=== PATIENT | male | born 1950 | race Caucasian/White ===

== ENCOUNTER → 2016-12-28 | Outpatient (CLI) | payer OTHER | LOC: BHFA 13:30 | PROVIDERS: ATTEND Internal Medicine Cardiovascular Disease | DX: Z01.810 Encounter for preprocedural cardiovascular examination (principal) ==

== ENCOUNTER → 2017-01-03 | Outpatient (CLI) | payer OTHER | LOC: BHLMT 08:30 | PROVIDERS: ATTEND Internal Medicine Cardiovascular Disease | DX: Z01.810 Encounter for preprocedural cardiovascular examination (principal); I25.10 Atherosclerotic heart disease of native coronary artery without angina pectoris | CPT/HCPCS: 78452; 93017; A9500; J2785 ==

== ENCOUNTER 2017-01-22 05:45 | Inpatient (IN) | payer OTHER ==
[2017-01-18 12:17] LABS: % IMMATURE GRANULYOCYTES 0.6 % (0.0-1.1); ABSOLUTE IMMATURE GRANULOCYTES 0.04 10^3/uL (0.00-0.10); ADD DIFF? NO; ADD MORPH? NO; ADD SCAN? NO; ATYPICAL LYMPHOCYTE FLAG 0 (0-99); FRAGMENT RBC FLAG 0 (0-99); HEMATOCRIT 46.3 % (40.0-51.0); HEMOGLOBIN 16.1 g/dL (13.7-17.5); LEFT SHIFT FLG 0 (0-99); LIPEMIA HEMOLYSIS FLAG 90 (0-99); MEAN CELL HEMOGLOBIN 31.8 pg (27.9-34.1); MEAN CELL HEMOGLOBIN CONCENTR. 34.8 g/dL (32.4-36.7); MEAN CELL VOLUME 91.3 fL (81.5-99.8); PLATELET CLUMPS FLAG 0 (0-99); PLATELET COUNT 179 10^3/uL (150-400); RED BLOOD CELL COUNT 5.07 10^6/uL (4.40-6.38); RED CELL DISTRIBUTION WIDTH 14.8 % (11.5-15.2)
[2017-01-18 12:51] LABS: ANION GAP 16 mEq/L (8-16); CALCIUM 10.1 mg/dL (8.5-10.4); CARBON DIOXIDE 20 mEq/l (22-31); CHLORIDE 108 mEq/L (97-110); CREATININE 0.8 mg/dL (0.7-1.3); GLOMERULAR FILTRATION RATE > 60; GLUCOSE 226 mg/dL (70-100); POTASSIUM 3.8 mEq/L (3.5-5.2); SODIUM 144 mEq/L (134-144)
[2017-01-22] MEDS ORDERED: ceFAZolin 2 GM/DEXTROSE 100 ML IV ONE (05:52)
[2017-01-22] MEDS ORDERED: LIDOCAINE 1% 2 ML INJ ID PRN (05:55)
[2017-01-22] MEDS ORDERED: LR 1,000 ML IV ONE (05:55)
[2017-01-22] MEDS ORDERED: THROMBIN (BOVINE) 5,000 UNIT VIAL TP ONE (06:44)
[2017-01-22] MEDS ORDERED: BUPIVACAINE/EPI 0.25% 30 ML SDV ONE (06:45)
[2017-01-22] MEDS ORDERED: BUPIVACAINE 0.25% 30 ML SDV ONE (06:45)
[2017-01-22] MEDS ORDERED: BACITRACIN 50,000 UNITS/10 ML SYR IRR ONE (06:46)
--- NOTE | 2017-01-22 07:01 | PDGENHP ---
History & Physical Chief Complaint: Left scapular pain. Bilateral arm weakness History of Present Illness: 66 yo male with left scapular pain and bilateral upper extremity weakness associated with numbness in bilateral fingers and difficulty with fine motor tasks. He is also having difficulty with balance and gait. 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 Pertinent Past, Social, Family History: Relevant Physical Exam: A+0x4. right Dorsiflexor 3+/5. DTR 1+/4 throughout. sens + Lt, subjective decreased in sensation in bilateral fingers Cardiorespiratory Assessment: Heart: RRR. Lungs: CTA bilaterally
--- NOTE | 2017-01-22 07:01 | PDANEPAE ---
ANE History of Present Illness cervical radiculopathy ANE Past Medical History - Cardiovascular History Hx Hypertension: Yes Hx Arrhythmias: No Hx Chest Pain: No Hx Coronary Artery / Peripheral Vascular Disease: Yes Hx CHF / Valvular Disease: No Hx Palpitations: No Cardiovascular History Comment: s/p coronary stents in - Pulmonary History Hx COPD: Yes Hx Asthma/Reactive Airway Disease: No Hx Recent Upper Respiratory Infection: No Hx Oxygen in Use at Home: No Hx Sleep Apnea: Yes Sleep Apnea Screening Result - Last Documented: Positive Pulmonary History Comment: ANGIOPLASTY W/2 STENTS 2004. 1ppd x 50 years - Neurologic History Hx Cerebrovascular Accident: No Hx Seizures: No Hx Dementia: No Neurologic History Comment: peripheral neuropathy x 2 years, difficulty ambulating as a result, uses cane to ambulate - Endocrine History Hx Diabetes: Yes Hypothyroid: Yes Endocrine History Comment: PREDIAB. HYPOTHYROID - Renal History Hx Renal Disorders: Yes Renal History Comment: BLADDER - OXYBUTININ - Liver History Hx Hepatic Disorders: No Hepatic History Comment: hx of myopathy with elevated CK, due to symvastatin, now improved - Neurological & Psychiatric Hx Hx Neurological and Psychiatric Disorders: No - Cancer History Hx Cancer: No - Congenital Disorder History Hx Congenital Disorders: No - GI History GERD: mild Hx Gastrointestinal Disorders: Yes Gastrointestinal History Comment: ACID REFLUX. HEMICOLONECTOMY - Other Health History Other Health History: RESTLESS LEG SYNDROME. PSORIASIS - Chronic Pain History Chronic Pain: Yes (LOW BACK & NECK PAIN) - Surgical History Prior Surgeries: HEMICOLONECTOMY. CATARACTS. ANGIOPLASTY X 2 STENTS 2004 ANE Review of Systems - Exercise capacity Exercise capacity: >=4 METS METS (RN): 4 METS ANE Patient History - Allergies Allergies/Adverse Reactions: No Known Allergies Allergy (Unverified 12/05/16 18:22) - Home Medications Home Medications: Albuterol [Proventil Inhaler HFA (*)] 2 puffs IH Q4 PRN 01/18/17 [Last Taken ] Amlodipine Besylate [Norvasc] 5 mg PO HS 01/18/17 [Last Taken Unknown] Aspirin [Aspirin 81mg (*)] 81 mg PO DAILY 01/18/17 [Last Taken Unknown] Betamethasone/Propylene Glyc [Betamethasone Dp Aug 0.05% Crm] 1 larissa TP DAILY 01/28 [Last Taken Unknown] Cholecalciferol Vit D3 [Vitamin D3 (*)] 1,000 units PO DAILY 01/18/17 [Last Taken Unknown] Cyanocobalamin [Vitamin B12 1000MCG/ML (*)] 1,000 mcg IM Q30D 01/18/17 [Last Taken 01/15/17] Docusate Sodium [Colace 100 MG (*)] 100 mg PO DAILY PRN 01/18/17 [Last Taken ] Ketoconazole [Nizoral A-D] 125 ml TP DAILY 01/18/17 [Last Taken 01/21/17] Latanoprost 0.005% [Xalatan 0.005% (*)] 1 drops EACHEYE HS 01/18/17 [Last Taken 01/21/17 22:30] Levothyroxine [Synthroid 137 mcg (*)] 137 mcg PO DAILY06 01/18/17 [Last Taken Unknown] Meloxicam [Mobic 15 mg] 15 mg PO DAILY 01/18/17 [Last Taken 01/04/17] Methylphenidate HCl [Ritalin 20mg (*)] 20 mg PO BID@0800,1300 01/18/17 [Last Taken 01/21/17 13:00] Methylphenidate HCl [Ritalin 5mg (*)] 5 mg PO DAILY@1800 01/18/17 [Last Taken 18:00] Metoprolol Succinate [Toprol Xl 200 mg] 200 mg PO DAILY 01/18/17 [Last Taken Unknown] Multivitamins [Multivitamin (*)] 1 each PO DAILY 01/18/17 [Last Taken 12/25/16] Omeprazole [Prilosec 20 mg] 20 mg PO DAILY 01/18/17 [Last Taken 12/25/16] Oxybutynin Chloride [Ditropan Xl] 20 mg PO DAILY 01/18/17 [Last Taken 01/15/17] Quinapril HCl [Accupril 40 MG] 40 mg PO DAILY 01/18/17 [Last Taken 01/21/17] buPROPion XL [Wellbutrin Xl] 150 mg PO DAILY 01/18/17 [Last Taken 01/21/17 09:00 ] metFORMIN HCL [Metformin HCl] 500 mg PO DAILY@0800 01/18/17 [Last Taken 09:00] rOPINIRole HCL [Ropinirole HCl] 3 mg PO TID 01/18/17 [Last Taken Unknown] - NPO status NPO Since - Liquids (Date): 01/21/17 NPO Since - Liquids (Time): 22:00 NPO Since - Solids (Date): 01/21/17 NPO Since - Solids (Time): 22:00 - Smoking Hx Smoking Status: Light smoker - Family Anes Hx Family Hx Anesthesia Complications: NEG ANE Labs/Vital Signs - Labs Result Diagrams: 01/18/17 12:08 01/18/17 12:08 - Vital Signs Blood Pressure: 133/93 Heart Rate: 74 Respiratory Rate: 18 O2 Sat (%): 93 Height: 177.8 cm Weight: 108.862 kg ANE Physical Exam - Airway Neck exam: FROM Mallampati Score: Class 2 Mouth exam: poor dentition - Pulmonary Pulmonary: clear to auscultation - Cardiovascular Cardiovascular: regular rate and rhythym - ASA Status ASA Status: III ANE Anesthesia Plan Anesthesia Plan: general endotracheal anesthesia
[2017-01-22] MEDS ORDERED: MIDAZOLAM 2 MG/2 ML VIAL IVP ONE (07:11)
[2017-01-22] MEDS ORDERED: KETAMINE 100 MG/10 ML SYR ONE (07:15)
[2017-01-22] MEDS ORDERED: fentaNYL 100 MCG/2 ML INJ ONE ×5 (07:15→12:54)
[2017-01-22] MEDS ORDERED: PROPOFOL/EMULSION 500 MG/50 ML BOTTLE IV ONE ×3 (07:16→11:10)
[2017-01-22] MEDS ORDERED: ROCURONIUM 50 MG/5 ML VIAL ONE ×2 (07:18→09:52)
[2017-01-22] MEDS ORDERED: THROMBIN (BOVINE) 20,000 UNIT VIAL TP ONE ×2 (07:41→10:37)
[2017-01-22] MEDS ORDERED: DEXAMETHASONE 4 MG/ML VIAL ONE (08:05)
[2017-01-22] MEDS ORDERED: MIDAZOLAM 2 MG/2 ML VIAL ONE (08:06)
[2017-01-22] MEDS ORDERED: RANITIDINE 50 MG/2 ML VIAL ONE (08:25)
[2017-01-22] MEDS ORDERED: epHEDrine SULFATE 10 MG/ML SYR ONE (08:29)
[2017-01-22] MEDS ORDERED: PHENYLEPHRINE 10 MG/ML SDV ONE (08:37)
[2017-01-22] MEDS ORDERED: GLYCOPYRROLATE 0.2 MG/1 ML VIAL ONE (09:10)
[2017-01-22] MEDS ORDERED: ONDANSETRON 4 MG/2 ML VIAL ONE (11:47)
[2017-01-22] MEDS ORDERED: fentaNYL 100 MCG/2 ML INJ IVP PRN (11:58)
[2017-01-22] MEDS ORDERED: NALOXONE HCL 0.4 MG/ML INJ IVP PRN ×2 (11:58→14:51)
--- NOTE | 2017-01-22 12:23 | POSTANESTH ---
Post Anesthetic Evaluation Cardiovascular Status: Similar to Pre-Op Cond Respiratory Status: Normal, Stable Level of Consciousness/Mental Status: Alert and Oriented Pain Control: Adequate, Prn Tx Ordered Nausea/Vomiting Control: Adequate, Prn Tx Ordered Complications Possibly Related to Anesthesia: None Noted
--- NOTE | 2017-01-22 14:16 | GOP ---
[f rep st] OPERATIVE REPORT DATE OF OPERATION: 01/22/2017 SURGEON: Joshua Rivas MD BULKING MACHINE OPERATOR: Axel Ramos, PAC. ANESTHESIA: General endotracheal. PREOPERATIVE DIAGNOSIS: 1. Severe C4-5 degenerative disk disease and gross spinal instability and stenosis with spinal cord compression. 2. Progressive cervical spondylitic myelopathy. 3. High risk surgical candidate given age, 66 years, comorbidities including morbid obesity and req uired surgical intervention. POSTOPERATIVE DIAGNOSIS: 1. Severe C4-5 degenerative disk disease and gross spinal instability and stenosis with spinal cord compression. 2. Progressive cervical spondylitic myelopathy. 3. High risk surgical candidate given age, 66 years, comorbidities including morbid obesity and req uired surgical intervention. PROCEDURE PERFORMED: 1. Mini open exposure for C4-5 complete anterior cervical diskectomy and arthrodesis with partial C 5 vertebral corpectomy. 2. Placement of a C4-5 anterior cervical plate with self-drilling screws. 3. Use of intraoperative microscopy and fluoroscopy. FINDINGS: ESTIMATED BLOOD LOSS: 25 cc. INDICATIONS: The patient is a 66-year-old man with severe C4-5 degenerative disk disease, instabili ty, and spinal stenosis with spinal cord compression. He has progressive myelopathic symptoms and p resents now for anterior and posterior decompression and stabilization. DESCRIPTION OF PROCEDURE: After informed consent was obtained, the patient was taken to the operati ng room and placed in the supine position with the head in the halter retraction system and good bas sherman neuromonitoring signals. After fluoroscopic localization of the correct level, the subcutaneo us and intramuscular tissues were infiltrated with local anesthesia and prepped and draped in a ster ile fashion. A horizontal incision was then created at the level of the C4-5 interspace, and this w as carried down to the platysmal layer, which was incised using monopolar electrocautery in the avas cular plane between the sternocleidomastoid and carotid sheath laterally and the strap muscles, trac hea, and esophagus medially down to the prevertebral fascia, which was carefully incised with Metzen rosibel scissors. The C4-5 interspace was identified and re-verified using intraoperative fluoroscopy. The distraction pins were carefully inserted, and under high-power microscopic visualization, comp lete diskectomy was performed at the C4-5 level in preparation of the endplates and removal of poste rior longitudinal ligament. Bilateral foraminotomies were performed. Due to the instability and re trolisthesis of C5 below 4, it was necessary to drill a more extensive amount of bone than had been anticipated, up to about 50% of the vertebral body which amounted to a partial C5 vertebral corpecto my in order to adequately decompress the spinal canal. Following adequate decompression, the remain ing endplates were carefully prepared, and an appropriately sized 11 mm structural PEEK interbody sp acer packed with local autograft in the center from the osteophytectomies and partial corpectomy. I t was placed in the interspace under fluoroscopic image guidance. The distraction was removed, and an appropriately sized LnK CastleLoc-P anterior cervical plate was then placed and screwed at the C4 -5 level under fluoroscopic image guidance again. Following re-verification of good position of the plate screws and interbody spacers using biplanar fluoroscopy, the anterior hole of the plate was g ently packed with the residual local autograft. A drain was placed. The subcutaneous and intramusc ular tissues were reinfiltrated with local anesthesia, and the wound was closed in a layered fashion using interrupted Vicryl sutures followed by Steri-Strips on the skin. COMPLICATIONS: None. DISPOSITION: The patient remained intubated and was repositioned for the posterior portion of the o peration. /[id number]/MODL
--- NOTE | 2017-01-22 14:26 | GOP ---
[f rep st] OPERATIVE REPORT DATE OF OPERATION: 01/22/2017 SURGEON: Joshua Rivas MD NUCLEAR REACTOR OPERATOR: Axel Ramos PA-C. ANESTHESIA: General endotracheal. PREOPERATIVE DIAGNOSIS: 1. Severe C4-5 degenerative disk disease. 2. Gross spinal instability. 3. Stenosis with spinal cord compression. 4. Progressive cervical spondylitic myelopathy. POSTOPERATIVE DIAGNOSIS: 1. Severe C4-5 degenerative disk disease. 2. Gross spinal instability. 3. Stenosis with spinal cord compression. 4. Progressive cervical spondylitic myelopathy. PROCEDURE PERFORMED: 1. C4-5 laminectomy for decompression of spinal canal/spinal cord with posterior nonsegmental (late ral mass screw) fixation and posterolateral fusion at the C4-5 level. 2. Use of intraoperative microscopy and fluoroscopy. FINDINGS: ESTIMATED BLOOD LOSS: 75 cc. DESCRIPTION OF PROCEDURE: After the anterior portion of the procedure was completed, the patient wa s repositioned prone with the head in the Mendoza head of measurement & insights. The posterior cervical region was p repped and draped in sterile fashion. After fluoroscopic localization of the correct level, the sub cutaneous and intramuscular tissues were infiltrated with local anesthesia. A vertical midline inci elias was then created over the C4-5 interspace. This was carried down the fascial layer which was i ncised using monopolar electrocautery and carried in the subfascial plane along the spinous processe s and lamina bilaterally. Intraoperative fluoroscopy was again utilized to verify the correct level s. Following this, the dissection was carried out over the facet joints. A laminectomy defect was then created at the C4 and C5 levels using the [place] drill system with a massive fluted bur and th e Kerrison rongeurs. Meticulous hemostasis was achieved from the epidural bleeding, and following t his, lateral mass screw fixation was placed in the C4 and C5 levels using 3.5 x 12 mm screws under f luoroscopic image guidance. Following re-verification of good position of the screws and rods which we locked and secured, the wound was again copiously irrigated with antibiotic irrigation. The fac et joint and remaining lateral masses at the C4-5 level were extensively decorticated, and the resid ual local autograft was placed out laterally for posterolateral fusion C4-5 level. A drain was then placed. The subcutaneous and intramuscular tissues were reinfiltrated with local anesthesia, and t he wound was closed in a layered fashion using interrupted Vicryl sutures followed by Steri-Strips o n the skin. COMPLICATIONS: None. INDICATIONS FOR PROCEDURE: The patient is a 66-year-old man with severe C4-5 degenerative disk dise ase, instability, and spinal stenosis with spinal cord compression. He has progressive myelopathic symptoms and presents now for anterior and posterior decompression and stabilization. DISPOSITION: The patient is currently in the process of being repositioned for extubation. /[id number]/MODL
[2017-01-22] MEDS ORDERED: LACTULOSE 20 GM/30 ML UDCUP PO PRN (14:46)
[2017-01-22] MEDS ORDERED: BISACODYL 10 MG SUPP PR PRN (14:46)
[2017-01-22] MEDS ORDERED: diphenhydrAMINE 25 MG CAP PO PRN (14:46)
[2017-01-22] MEDS ORDERED: MAGNESIUM HYDROXIDE 30 ML UDCUP PO PRN (14:46)
[2017-01-22] MEDS ORDERED: ONDANSETRON 4 MG/2 ML VIAL IVP PRN (14:46)
[2017-01-22] MEDS ORDERED: ONDANSETRON DISINTEGRATING 4 MG TAB PO PRN (14:46)
[2017-01-22] MEDS ORDERED: morphINE PCA 30 MG/30 ML PCA IV PRN (14:51)
[2017-01-22] MEDS ORDERED: ALBUTEROL 200 PUFFS/18 GM MDI IH PRN (14:52)
[2017-01-22] MEDS: oxyCODONE IR 5 MG TAB PO PRN ×2 (15:17→15:42)
[2017-01-22] MEDS: METHOCARBAMOL 750 MG TAB PO PRN ×2 (15:41→20:56)
[2017-01-22] MEDS ORDERED: ROPINIROLE HCL 3 MG PO SCH (16:00)
--- NOTE | 2017-01-22 16:46 | POSTOPPROG ---
Post Op Note Date of Operation: 01/22/17 Surgeon: Joshua Rivas Shovel Mechanic: maki Anesthesiologist: Smith Jones Anesthesia: GET(General Endotracheal) Pre-op Diagnosis: C4/5 stenosis, gliosis, spondylolisthesis Post-op Diagnosis: same Indication: neck pain, bilateral arm weakness, numbness Procedure: C4/5 ACDF and posterior decompression/fusion Findings: stenosis Inf/Abcess present in the surg proc area at time of surgery?: No EBL: 50-100 Complications: none Drains: Yoshi Winter (anterior and posterior HERMILO drains to bulb suction) Specimen(s): none
--- NOTE | 2017-01-22 16:49 | NEUSURGPN ---
Date of Surgery: 01/22/17 Post Op Day: 0 Assessment/Plan: POST OP CHECK: assesment: doing well s/p C4/5 A/P cervical fusion Plan Transfer to floor per protocol Hannah Gutierrez at all times Ant/post JPs to suction Subjective: awake, alert, pain controlled Objective: Neuro: MACK, sens +LT follows commands x 4 Vitals: BP: 140/95 HR: 67 O2: 97 % Neurosurgery Physical Exam - Vitals, I&O, Labs I and O 01/21/17 01/22/17 01/23/17 05:59 05:59 05:59 Intake Total 1600 Output Total 525 Balance 1075 Weight 108.862 kg Intake: IV Intake (ml) 1600 Output: Urine (ml) 405 Catheter 405 Estimated Blood Loss (ml) 75 HERMILO Drain Output (ml) 45 #1 Anterior Neck 25 #2 Posterior Neck 20 Vital Signs Temp Pulse Resp BP Pulse Ox 36.6 C 82 20 146/89 H 95 01/22/17 16:01 01/22/17 16:01 01/22/17 16:01 01/22/17 16:01 01/22/17 16:01 Laboratory Results 01/18/17 12:08 01/18/17 12:08 ICD10 Worksheet Patient Problems: Problems Problem Status Onset Cervical stenosis of spine Acute - ICD10 Problem Qualifiers (1) Cervical stenosis of spine
[2017-01-22] MEDS: CEFUROXIME 1,500 MG in NS 50 ML IV SCH (17:31)
[2017-01-22] MEDS: POLYETHYLENE GLYCOL 3350 17 GM PKT PO SCH ×2 (17:31→20:56)
[2017-01-22] MEDS: SENNOSIDES/DOCUSATE SODIUM TAB PO SCH (20:54)
[2017-01-22] MEDS: FAMOTIDINE 20 MG TAB PO SCH (20:55)
[2017-01-22] MEDS: morphINE SR 15 MG TAB PO SCH (20:55)
[2017-01-22] MEDS: ACETAMINOPHEN 500 MG TAB PO SCH (20:55)
[2017-01-22] MEDS ORDERED: LATANOPROST 0.005% 2.5 ML OPHT DROPS EACHEYE SCH (21:00)
[2017-01-22] MEDS ORDERED: amLODIPine BESYLATE 5 MG TAB PO SCH (21:00)
[2017-01-23] MEDS: CEFUROXIME 1,500 MG in NS 50 ML IV SCH (00:05)
[2017-01-23 04:49] LABS: % IMMATURE GRANULYOCYTES 0.4 % (0.0-1.1); ABSOLUTE IMMATURE GRANULOCYTES 0.03 10^3/uL (0.00-0.10); ADD DIFF? NO; ADD MORPH? NO; ADD SCAN? NO; ATYPICAL LYMPHOCYTE FLAG 0 (0-99); FRAGMENT RBC FLAG 0 (0-99); HEMATOCRIT 41.2 % (40.0-51.0); LEFT SHIFT FLG 10 (0-99); LIPEMIA HEMOLYSIS FLAG 90 (0-99); MEAN CELL HEMOGLOBIN 31.3 pg (27.9-34.1); MEAN PLATELET VOLUME 8.7 fL (8.7-11.7); PLATELET CLUMPS FLAG 0 (0-99); PLATELET COUNT 124 10^3/uL (150-400); RED BLOOD CELL COUNT 4.48 10^6/uL (4.40-6.38); RED CELL DISTRIBUTION WIDTH 14.7 % (11.5-15.2)
[2017-01-23] MEDS: ACETAMINOPHEN 500 MG TAB PO SCH ×2 (05:08→13:42)
[2017-01-23] MEDS ORDERED: LEVOTHYROXINE 137 MCG TAB PO SCH (06:00)
[2017-01-23 06:02] LABS: ANION GAP 11 mEq/L (8-16); CALCIUM 8.9 mg/dL (8.5-10.4); CARBON DIOXIDE 21 mEq/l (22-31); CHLORIDE 109 mEq/L (97-110); CREATININE 0.7 mg/dL (0.7-1.3); GLOMERULAR FILTRATION RATE > 60; GLUCOSE 123 mg/dL (70-100); POTASSIUM 4.4 mEq/L (3.5-5.2); SODIUM 141 mEq/L (134-144)
[2017-01-23] MEDS ORDERED: metFORMIN HCL 500 MG TAB PO SCH (08:00)
--- NOTE | 2017-01-23 08:09 | SOAPPROG ---
SOAP Progress Note Assessment/Plan: POST OP CHECK: assessment: POD #1 doing well s/p C4/5 A/P cervical fusion swallowing well. Plan DC home today after he is seen by PT/OT/ST Continue posterior HERMILO upon DC. Will Discuss with Dr. Ocasio if anterior HERMILO may be removed prior to DC Hard collars at all time. Subjective: awake, alert, doing well pain controlled. Pt feels improved sensation in both feet. Denies new weakness or tingling Objective: Vital Signs Temp Pulse Resp BP Pulse Ox 37.1 C 80 16 162/102 H 93 01/23/17 07:27 01/23/17 07:27 01/23/17 07:27 01/23/17 07:27 01/23/17 07:27 Laboratory Results 01/23/17 04:41 01/23/17 04:41 01/22/17 01/23/17 01/24/17 05:59 05:59 05:59 Intake Total 2750 Output Total 2075 Balance 675 Neuro: [place], sens + LT improved sensation in bilateral feet ambulatory HERMILO: Ant 80ml HERMILO: post 140 ml ICD10 Worksheet Patient Problems: Problems Problem Status Onset Cervical stenosis of spine Acute - ICD10 Problem Qualifiers (1) Cervical stenosis of spine
[2017-01-23] MEDS ORDERED: BETAMETHASONE AUGMENTED 0.05% 15GM CREAM TP SCH (09:00)
[2017-01-23] MEDS ORDERED: LISINOPRIL 40 MG TAB PO SCH (09:00)
[2017-01-23] MEDS ORDERED: buPROPion XL 150 MG TAB PO SCH (09:00)
[2017-01-23] MEDS ORDERED: METOPROLOL SUCCINATE 200 MG PO SCH (09:00)
[2017-01-23] MEDS ORDERED: NON-FORMULARY NEW DRUG (Omeprazole [Prilosec 20 Mg] 20 MG) PO SCH (09:00)
[2017-01-23] MEDS ORDERED: OXYBUTYNIN CHLORIDE 20 MG PO SCH (09:00)
[2017-01-23] MEDS ORDERED: METOPROLOL SUCCINATE XR 100 MG TAB PO SCH (09:00)
[2017-01-23] MEDS ORDERED: KETOCONAZOLE TP SCH (09:00)
[2017-01-23] MEDS ORDERED: NON-FORMULARY NEW DRUG (Quinapril Hcl [Accupril 40 Mg] 40 MG) PO SCH (09:00)
[2017-01-23] MEDS ORDERED: PANTOPRAZOLE SODIUM 40 MG TAB PO SCH (09:00)
[2017-01-23] MEDS ORDERED: OXYBUTYNIN 5 MG EXT REL TAB PO SCH (09:00)
[2017-01-23] MEDS ORDERED: ENOXAPARIN 40 MG/0.4 ML SYR SC SCH (09:00)
[2017-01-23] MEDS: POLYETHYLENE GLYCOL 3350 17 GM PKT PO SCH (09:28)
[2017-01-23] MEDS: FAMOTIDINE 20 MG TAB PO SCH (09:30)
[2017-01-23] MEDS: SENNOSIDES/DOCUSATE SODIUM TAB PO SCH (09:31)
[2017-01-23] MEDS: morphINE SR 15 MG TAB PO SCH (09:32)
[2017-01-23 11:37] VITALS: BP 137/87; PULSE 80; RESP 18; TEMP 97.9; O2SAT 91
[2017-01-23] MEDS: METHOCARBAMOL 750 MG TAB PO PRN (13:42)
== END 2017-01-23 15:34 | disposition home or self-care (01) | DRG 472 ==
LOC: F3N 05:45
PROVIDERS: ADMIT Neurological Surgery; ATTEND Neurological Surgery
PROC: 0RG10A0 Fusion of Cervical Vertebral Joint with Interbody Fusion Device, Anterior Approach, Anterior Column, Open Approach (ICD-10-PCS; principal; 2017-01-22 07:15)
PROC: 01N10ZZ Release Cervical Nerve, Open Approach (ICD-10-PCS; principal; 2017-01-22 07:15)
PROC: 0RT30ZZ Resection of Cervical Vertebral Disc, Open Approach (ICD-10-PCS; principal; 2017-01-22 07:15)
DX: M48.02 Spinal stenosis, cervical region (principal); M50.021 Cervical disc disorder at C4-C5 level with myelopathy; M53.2X2 Spinal instabilities, cervical region; M46.92 Unspecified inflammatory spondylopathy, cervical region; E66.01 Morbid (severe) obesity due to excess calories; Z68.34 Body mass index [BMI] 34.0-34.9, adult; I25.10 Atherosclerotic heart disease of native coronary artery without angina pectoris; Z95.5 Presence of coronary angioplasty implant and graft; I10 Essential (primary) hypertension; E78.5 Hyperlipidemia, unspecified
CPT/HCPCS: 92610-GN; 97116-GP; 97162-GP; 97165-GO; C1713; G8978-GP-CI; G8979-GP-CI; G8980-GP-CI; G8987-GO-CI; G8988-GO-CI; G8989-GO-CI; G8996-GN-CI; G8997-GN-CI; J0690; J0697; J1100; J1650; J2250; J2370; J2405; J2704; J2780; J3010

== ENCOUNTER 2017-08-22 05:43 | Observation (INO) | payer OTHER ==
--- NOTE | 2017-08-22 06:00 | PDHPUP ---
History & Physical Update H&P update statement: This history and physical update is based on an assessment of the patient which was completed after admission or registration (within 24 hours), but prior to the surgery/procedure. H&P update: H&P reviewed & patient examined, no change in patient's condition since H&P completed
[2017-08-22] MEDS ORDERED: ceFAZolin 2 GM/SWFI 2 GM/20 ML SYR IVP ONE (06:02)
[2017-08-22] MEDS ORDERED: LR 1,000 ML IV ONE (06:05)
[2017-08-22] MEDS ORDERED: LIDOCAINE 1% 2 ML INJ ID PRN (06:05)
--- NOTE | 2017-08-22 06:28 | PDANEPAE ---
ANE History of Present Illness 67 yo male with lumbar stenosis for L2-5 microdiscectomies. ANE Past Medical History - Cardiovascular History Hx Hypertension: Yes Hx Arrhythmias: No Hx Chest Pain: No Hx Coronary Artery / Peripheral Vascular Disease: Yes Hx CHF / Valvular Disease: No Hx Palpitations: No Cardiovascular History Comment: s/p coronary stents in . ANGIOPLASTY W/2 STENTS 2004 - Pulmonary History Hx COPD: No Hx Asthma/Reactive Airway Disease: Yes Hx Recent Upper Respiratory Infection: No Hx Oxygen in Use at Home: No Hx Sleep Apnea: Yes Sleep Apnea Screening Result - Last Documented: Positive Pulmonary History Comment: 1ppd x 50 years. rare inhaler use, no ER visits - Neurologic History Hx Cerebrovascular Accident: No Hx Seizures: No Hx Dementia: No Neurologic History Comment: peripheral neuropathy x 2 years. HAS CANE DOES NOT USE ALL THE TIME - Endocrine History Hx Diabetes: Yes Hypothyroid: Yes Obesity: moderate Endocrine History Comment: PREDIAB. HYPOTHYROID - Renal History Hx Renal Disorders: Yes Renal History Comment: BLADDER incontinence- OXYBUTININ - Liver History Hx Hepatic Disorders: No Hepatic History Comment: hx of myopathy with elevated CK, due to simvastatin, now improved - Neurological & Psychiatric Hx Hx Neurological and Psychiatric Disorders: Yes Neurological / Psychiatric History Comment: ADHD - Cancer History Hx Cancer: No - Congenital Disorder History Hx Congenital Disorders: No - GI History GERD: moderate Hx Gastrointestinal Disorders: Yes Gastrointestinal History Comment: ACID REFLUX. HEMICOLONECTOMY - Other Health History Other Health History: RESTLESS LEG SYNDROME. PSORIASIS - Chronic Pain History Chronic Pain: Yes (LOW BACK & NECK PAIN) - Surgical History Prior Surgeries: 01/2017 CERVICAL FUSION. HEMICOLONECTOMY. CATARACTS. ANGIOPLASTY X 2 STENTS 2004 ANE Review of Systems Review of Systems: - Exercise capacity METS (RN): 4 METS - Systems Constitutional: Reports: no symptoms Cardiac: Reports: no symptoms Respiratory: Reports: no symptoms ANE Patient History - Allergies Allergies/Adverse Reactions: shellfish derived Allergy (Verified 07/30/17 13:24) - Home Medications Home Medications: Albuterol [Proventil Inhaler HFA (*)] 2 puffs IH Q4 PRN 01/18/17 [Last Taken 07/31] Amlodipine Besylate [Norvasc] 5 mg PO HS 01/18/17 [Last Taken 08/21/17 21:30] Betamethasone/Propylene Glyc [Betamethasone Dp Aug 0.05% Crm] 1 larissa TP DAILY 01/28 [Last Taken 08/15/17] Cholecalciferol Vit D3 [Vitamin D3 (*)] 1,000 units PO DAILY 01/18/17 [Last Taken 08/15/17] Cyanocobalamin [Vitamin B12 1000MCG/ML (*)] 1,000 mcg IM Q30D 01/18/17 [Last Taken 08/21/17 14:00] Ketoconazole [Nizoral A-D] 125 ml TP DAILY 01/18/17 [Last Taken 08/22/17 04:00] Latanoprost 0.005% [Xalatan 0.005% (*)] 1 drops EACHEYE HS 01/18/17 [Last Taken 08/21/17 22:30] Levothyroxine [Synthroid 137 mcg (*)] 137 mcg PO DAILY06 01/18/17 [Last Taken 03:55] Methylphenidate HCl [Ritalin 20mg (*)] 20 mg PO BID@0800,1300 01/18/17 [Last Taken 08/22/17 04:15] Methylphenidate HCl [Ritalin 5mg (*)] 5 mg PO DAILY@1800 01/18/17 [Last Taken ] Metoprolol Succinate [Toprol Xl 200 mg] 200 mg PO DAILY 01/18/17 [Last Taken 01/29 10:00] Multivitamins [Multivitamin (*)] 1 each PO DAILY 01/18/17 [Last Taken 08/15/17] Oxybutynin Chloride [Ditropan Xl] 10 mg PO BID 01/18/17 [Last Taken 08/22/17 04: 15] Quinapril HCl [Accupril 40 MG] 40 mg PO DAILY 01/18/17 [Last Taken 08/15/17] metFORMIN HCL [Metformin HCl] 500 mg PO DAILY 01/18/17 [Last Taken 08/21/17 10: 00] rOPINIRole HCL [Ropinirole HCl] 3 mg PO TID 01/18/17 [Last Taken 08/21/17 21:30] Acetaminophen [Tylenol ES 500 mg (*)] 1,000 mg PO Q8HRS PRN 07/30/17 [Last Taken 08/15/17] Meloxicam 15 mg PO DAILY 07/30/17 [Last Taken 08/15/17] - NPO status NPO Status: no food or drink >8 hours NPO Since - Liquids (Date): 08/22/17 NPO Since - Liquids (Time): 04:15 (sip of water with AM meds) - Anes Hx Anes Hx: no prior problems - Smoking Hx Smoking Status: Light smoker (> 50 pack yr history of smoking) - Family Anes Hx Family Anes Hx: neg - N/A Family Hx Anesthesia Complications: NEG ANE Labs/Vital Signs - Labs - BMP Glucose: 108 - Vital Signs Blood Pressure: 136/93 Heart Rate: 105 O2 Sat (%): 90 Height: 176.53 cm Weight: 98.883 kg ANE Physical Exam - Airway Neck exam: FROM Mallampati Score: Class 2 Mouth exam: poor dentition (missing upper front teeth) - Pulmonary Pulmonary: other (coarse, but no crackles or wheezing) - Cardiovascular Cardiovascular: tachycardia - ASA Status ASA Status: III ANE Anesthesia Plan Anesthesia Plan: general endotracheal anesthesia
[2017-08-22] MEDS ORDERED: CHLORHEXIDINE GLUC HIBICLENS 118 ML BTL TP ONE (06:45)
[2017-08-22] MEDS ORDERED: THROMBIN (BOVINE) 5,000 UNIT VIAL TP ONE (06:45)
[2017-08-22] MEDS ORDERED: BUPIVACAINE 0.25% 30 ML SDV ONE (06:45)
[2017-08-22] MEDS ORDERED: BACITRACIN 50,000 UNITS/10 ML SYR IRR ONE (06:46)
[2017-08-22] MEDS ORDERED: METOPROLOL TARTRATE 5 MG/5 ML INJ IVP ONE (06:58)
[2017-08-22] MEDS ORDERED: PROPOFOL/EMULSION 500 MG/50 ML BOTTLE IV ONE ×3 (07:08→08:41)
[2017-08-22] MEDS ORDERED: REMIFENTANIL HCL 1 MG VIAL ONE ×2 (07:08→09:31)
[2017-08-22] MEDS ORDERED: LIDOCAINE 2% 5 ML SDV ONE (07:08)
[2017-08-22] MEDS ORDERED: ROCURONIUM 50 MG/5 ML VIAL ONE (07:08)
[2017-08-22] MEDS ORDERED: fentaNYL 250 MCG/5 ML INJ ONE (07:08)
[2017-08-22] MEDS ORDERED: DEXAMETHASONE 4 MG/ML VIAL ONE (07:08)
[2017-08-22] MEDS ORDERED: PHENYLEPHRINE HCL 100 MCG/ML SYR ONE (08:03)
[2017-08-22] MEDS ORDERED: VASOPRESSIN 20 UNIT/ML VIAL ONE (08:21)
[2017-08-22] MEDS ORDERED: NALOXONE HCL 0.4 MG/ML INJ IVP PRN (09:42)
[2017-08-22] MEDS ORDERED: PROMETHAZINE HCL 25 MG/ML INJ IVP PRN (09:42)
[2017-08-22] MEDS ORDERED: ACETAMINOPHEN 500 MG TAB PO PRN (09:42)
[2017-08-22] MEDS ORDERED: LR 500 ML IV PRN (09:42)
[2017-08-22] MEDS ORDERED: fentaNYL 100 MCG/2 ML INJ IVP PRN (09:42)
[2017-08-22] MEDS ORDERED: ONDANSETRON 4 MG/2 ML VIAL IVP PRN ×2 (09:42→09:56)
[2017-08-22] MEDS ORDERED: LABETALOL HCL 5 MG/ML 20 ML MDV IVP PRN (09:42)
[2017-08-22] MEDS ORDERED: DIAZEPAM 10 MG/2 ML SYR IVP PRN (09:42)
[2017-08-22] MEDS ORDERED: OXYCODONE/APAP 5/325 TAB PO PRN (09:42)
[2017-08-22] MEDS ORDERED: IPRATROPIUM/ALBUTEROL 3 ML DEYVIAL IH PRN (09:43)
[2017-08-22] MEDS ORDERED: ALBUTEROL 60 PUFFS/8 GM MDI IH PRN (09:55)
[2017-08-22] MEDS ORDERED: LACTULOSE 20 GM/30 ML UDCUP PO PRN (09:56)
[2017-08-22] MEDS ORDERED: MAGNESIUM HYDROXIDE 30 ML UDCUP PO PRN (09:56)
[2017-08-22] MEDS ORDERED: diphenhydrAMINE 25 MG CAP PO PRN (09:56)
[2017-08-22] MEDS ORDERED: METHOCARBAMOL 750 MG TAB PO PRN (09:56)
[2017-08-22] MEDS ORDERED: BISACODYL 10 MG SUPP PR PRN (09:56)
[2017-08-22] MEDS ORDERED: ONDANSETRON DISINTEGRATING 4 MG TAB PO PRN (09:56)
[2017-08-22] MEDS ORDERED: oxyCODONE IR 5 MG TAB PO PRN (09:56)
[2017-08-22] MEDS ORDERED: NS W/ 20 KCl/L 1,000 ML IV SCH (10:00)
--- NOTE | 2017-08-22 10:03 | SOAPPROG ---
SOAP Progress Note Assessment/Plan: Assessment: 67 yo M sp L2-5 microdecompression Plan: stable PT/OT to 3N try to dc home later today please call with neuro changes 08/22/17 10:02 Subjective: + back pain, no leg pain, Objective: Vital Signs Temp Pulse Resp BP Pulse Ox 36.7 C 110 H 18 139/92 H 90 L 08/22/17 06:45 08/22/17 07:09 08/22/17 06:45 08/22/17 07:09 08/22/17 06:58 somnolent PERRL, no facial droop BEST x 4, 5/5 legs except right DF 3/5, left 4/5 chronic + light touch ICD10 Worksheet Patient Problems: Problems Problem Status Onset Lumbar stenosis Acute Cervical stenosis of spine Acute - ICD10 Problem Qualifiers (1) Lumbar stenosis
--- NOTE | 2017-08-22 10:16 | POSTANESTH ---
Post Anesthetic Evaluation Cardiovascular Status: Normal, Stable Respiratory Status: Normal, Stable Level of Consciousness/Mental Status: Can Participate in Eval, Mildly Sleepy, Arousable Pain Control: Adequate, Prn Tx Ordered Nausea/Vomiting Control: Adequate, Prn Tx Ordered Complications Possibly Related to Anesthesia: None Noted (Moving extremities x4. )
[2017-08-22 13:05] VITALS: BP 155/100; PULSE 103; RESP 18; TEMP 98; O2SAT 97
--- NOTE | 2017-08-22 13:37 | GOP ---
[f rep st] OPERATIVE REPORT DATE OF OPERATION: 08/22/2017 SURGEON: Joshua Rivas MD NEUROSURGEON: Joshua Rivas MD. [employer] PROF[employer]: JONO Frazier. ANESTHESIA: General endotracheal. PREOPERATIVE DIAGNOSIS: Severe multilevel lumbar spinal stenosis with severe lateral recess impingem ent. Intractable left greater than right lower extremity radiculopathy and claudication. Failed con servative care. POSTOPERATIVE DIAGNOSIS: Severe multilevel lumbar spinal stenosis with severe lateral recess impinge ment. Intractable left greater than right lower extremity radiculopathy and claudication. Failed co nservative care. PROCEDURE PERFORMED: Left-sided L2-3, L3-4, and L4-5 posterior hemilaminectomy and medial facetectom y, foraminotomies, and central canal decompression with use of intraoperative microscopy and fluorosc opy. FINDINGS: ESTIMATED BLOOD LOSS: 75 cc. INDICATIONS: The patient is a 67-year-old man with ongoing left greater than right lower extremity r adicular and neurogenic claudication symptoms that have failed to improve with extensive conservative care secondary to multilevel lumbar stenosis and lateral recess impingement. He presents now for a surgical decompression. DESCRIPTION OF PROCEDURE: After informed consent was obtained, the patient was taken to the operatin g room and placed in the prone position on the Escobar frame. The lumbosacral area was prepped and dr aped in the usual sterile fashion, and after fluoroscopic localization at correct levels, the subcuta neous and intramuscular tissues were infiltrated with local anesthesia. A midline linear incision wa s then created over the L3-4 spinous processes. This was carried down to the fascial layer, which radha lynne then carried in a subperiosteal plane along the spinous processes and lamina on the left. Intraope rative fluoroscopy was again utilized to verify the correct levels. Following this, the dissection w as carried out over the L2, L3, L4, and L5 laminae by angling the retractors rostrally and caudally s o as to not make the incision larger. After re verification of the correct levels, the microscope radha lynne brought in and the minimally invasive Shadow Line retractor inserted. Posterior hemilaminectomy de fects were created at each level with elevation of the ligamentum flavum. It was necessary to do a s light medial facetectomy in order to adequately decompress the lateral recess at each level. Care wa s taken to not destabilize the joints. The microscope was angled across the midline, and a bilateral central canal decompression was achieved. Each level was explored rostrally, caudally, medially, an d laterally, and thoroughly decompressed. The L4-5 level was the worst followed by the L3-4 and then the L2-3. Following adequate decompression at each level, meticulous hemostasis was achieved as bes t we could. The wound was copiously irrigated with antibiotic irrigation. A drain was then placed. The subcutaneous and intramuscular tissues were re-infiltrated with local anesthesia and the wound w as closed in a layered fashion using interrupted Vicryl sutures followed by Steri-Strips on the skin. COMPLICATIONS: None. DISPOSITION: The patient was extubated and transferred to the recovery room in stable condition. /[id number]/MODL
[2017-08-22] MEDS ORDERED: ceFAZolin 2 GM/DEXTROSE 100 ML IV SCH (15:00)
[2017-08-22] MEDS ORDERED: POLYETHYLENE GLYCOL 3350 17 GM PKT PO SCH (16:00)
[2017-08-22] MEDS ORDERED: FAMOTIDINE 20 MG TAB PO SCH (21:00)
[2017-08-22] MEDS ORDERED: LATANOPROST 0.005% 2.5 ML OPHT DROPS EACHEYE SCH (21:00)
[2017-08-22] MEDS ORDERED: SENNOSIDES/DOCUSATE SODIUM TAB PO SCH (21:00)
[2017-08-22] MEDS ORDERED: amLODIPine BESYLATE 5 MG TAB PO SCH (21:00)
[2017-08-22] MEDS ORDERED: NON-FORMULARY NEW DRUG (Oxybutynin Chloride [Ditropan Xl] 10 MG) PO SCH (21:00)
[2017-08-23] MEDS ORDERED: LEVOTHYROXINE 137 MCG TAB PO SCH (06:00)
[2017-08-23] MEDS ORDERED: metFORMIN HCL 500 MG TAB PO SCH (09:00)
[2017-08-23] MEDS ORDERED: METOPROLOL SUCCINATE XR 100 MG TAB PO SCH (09:00)
[2017-08-23] MEDS ORDERED: NON-FORMULARY NEW DRUG (Quinapril Hcl [Accupril 40 Mg] 40 MG) PO SCH (09:00)
[2017-08-23] MEDS ORDERED: LISINOPRIL 40 MG TAB PO SCH (09:00)
[2017-08-23] MEDS ORDERED: KETOCONAZOLE 1% TP SCH (09:00)
[2017-08-23] MEDS ORDERED: OXYBUTYNIN 5 MG EXT REL TAB PO SCH (09:00)
[2017-08-23] MEDS ORDERED: KETOCONAZOLE TP SCH (09:00)
[2017-08-23] MEDS ORDERED: NON-FORMULARY NEW DRUG (Meloxicam [Meloxicam] 15 MG) PO SCH (09:00)
[2017-08-23] MEDS ORDERED: BETAMETHASONE AUGMENTED 0.05% 15GM CREAM TP SCH (09:00)
[2017-08-23] MEDS ORDERED: ENOXAPARIN 40 MG/0.4 ML SYR SC SCH (09:00)
== END 2017-08-22 14:55 | disposition home or self-care (01) ==
LOC: F3N 05:43
PROVIDERS: ADMIT Neurological Surgery; ATTEND Neurological Surgery
PROC: 4A1104G Monitoring of Peripheral Nervous Electrical Activity, Intraoperative, Open Approach (ICD-10-PCS; principal; 2017-08-22 07:15)
PROC: 00NY0ZZ Release Lumbar Spinal Cord, Open Approach (ICD-10-PCS; principal; 2017-08-22 07:15)
PROC: BR19YZZ Fluoroscopy of Lumbar Spine using Other Contrast (ICD-10-PCS; 2017-08-22 07:15)
DX: M48.062 Spinal stenosis, lumbar region with neurogenic claudication (principal); M47.26 Other spondylosis with radiculopathy, lumbar region; M51.36 Other intervertebral disc degeneration, lumbar region; I25.10 Atherosclerotic heart disease of native coronary artery without angina pectoris; I10 Essential (primary) hypertension; E11.9 Type 2 diabetes mellitus without complications; G72.9 Myopathy, unspecified; E03.9 Hypothyroidism, unspecified; E78.5 Hyperlipidemia, unspecified; Z98.1 Arthrodesis status
CPT/HCPCS: 63047; 63048; 76001; J0171; J0690; J1100; J2370; J2704; J3010

== ENCOUNTER → 2018-06-19 | Outpatient (CLI) | payer OTHER | LOC: BHLMT 14:00 | PROVIDERS: ATTEND Internal Medicine Cardiovascular Disease | DX: I25.10 Atherosclerotic heart disease of native coronary artery without angina pectoris (principal); I10 Essential (primary) hypertension; I45.10 Unspecified right bundle-branch block | CPT/HCPCS: 93306-PO ==

== ENCOUNTER → 2018-06-23 | Outpatient (CLI) | payer OTHER | LOC: BHFA 15:30 | PROVIDERS: ATTEND Internal Medicine Cardiovascular Disease | DX: I96 Gangrene, not elsewhere classified (principal) ==